=== PATIENT | male | born 1940 | race Caucasian/White ===

== ENCOUNTER 2025-11-12 14:28 | Inpatient (IN) ==
[2025-11-13] MEDS ORDERED: POLYETHYLENE (MIRALAX) 17 GM PACK PO PRN (01:07)
--- NOTE | 2025-11-13 01:14 | History & Physical Report ---
Date of Service November 13, 2025 Assessment & Plan (1) Closed right femoral fracture: Plan: 85-year-old male with past medical history significant for dementia, depression, BPH, hypertension, GERD as per records, do not have complete records was transferred from [facility] for right hip fracture. Patient presented to [facility] from memory care unit from [facility] with fall. As per records from [facility] patient supposed to walk with a walker but he was ambulating without walker outside the room and had a witnessed fall to the ground presumably onto his right hip. And he was having pain in the right hip region and imaging studies done showed right hip fracture. Patient currently resting comfortably. Seems somewhat restless. Knows his name. Denies any pain. Could not get any history from the patient currently. Could not reach [facility] at [place]. Could not reach his sister. Status post fall Right femoral fracture Patient has severe dementia Ambulates with walker as per records Could not reach his sister or skilled nursing Because of age and severe dementia patient should be at moderate risk for any procedure N.p.o. Gentle fluids IV Tylenol as needed Consult orthopedics Hypertension Continue losartan and metoprolol IV hydralazine as needed Dementia On rivastigmine Olanzapine nightly Monitor for delirium Depression On Lexapro BPH On Proscar GERD On omeprazole Dilated oesophagus on ct chest barium swallow if needed recommended DVT prophylaxis SCDs on left leg only Further anticoagulation as per Ortho Disposition Medical floor CODE STATUS full code for now Addendum; Abnormal cxr. Can get ct chest.Right axilla US recommended. Admission and Anticipated Discharge Date Admission Date: November 12, 2025 History of Present Illness Chief Complaint: Fall and right hip fracture Primary Care Provider: Aliyah Pierre DO 85-year-old male with past medical history significant for dementia, depression, BPH, hypertension, GERD as per records, do not have complete records was transferred from [facility] for right hip fracture. Patient presented to [facility] from memory care unit from [facility] with fall. As per records from [facility] patient supposed to walk with a walker but he was ambulating without walker outside the room and had a witnessed fall to the ground presumably onto his right hip. And he was having pain in the right hip region and imaging studies done showed right hip fracture. Patient currently resting comfortably. Seems somewhat restless. Knows his name. Denies any pain. Could not get any history from the patient currently. Could not reach diane at [place]. Could not reach his sister. Past medical history. As mentioned above Past surgical history. Unknown at this time Family history and social history unknown at this time Allergies Allergy/AdvReac Type Severity Reaction Status Date / Time duloxetine [From Cymbalta] Allergy Unknown Verified 11/13/25 00:02 oxycodone Allergy Unknown Unverified 11/13/25 00:02 tramadol Allergy Unknown Verified 11/13/25 00:02 Home Medications Medication Instructions Recorded Confirmed Type alfuzosin 10 mg tablet,extended 10 mg PO DAILY 11/13/25 11/13/25 History release 24 hr aspirin 81 mg tablet,delayed 81 mg PO DAILY 11/13/25 11/13/25 History release escitalopram oxalate 10 mg tablet 10 mg PO DAILY 11/13/25 11/13/25 History finasteride 5 mg tablet 5 mg PO DAILY 11/13/25 11/13/25 History losartan 100 mg tablet 100 mg PO DAILY 11/13/25 11/13/25 History metoprolol succinate 100 mg 100 mg PO DAILY 11/13/25 11/13/25 History tablet,extended release 24 hr olanzapine 2.5 mg tablet 2.5 mg PO HS 11/13/25 11/13/25 History omeprazole 20 mg capsule,delayed 20 mg PO DAILY 11/13/25 11/13/25 History release rivastigmine 13.3 mg/24 hour 13.3 mg topical DAILY 11/13/25 11/13/25 History transdermal patch Past Med/Surg History Problem List (Updated 11/13/25 @ 01:26 by Olivier Pulido MD) Closed right femoral fracture Social History Smoking Status: Unknown if ever smoked Hx Alcohol Use: No Hx Substance Use: No Preferred Language: Amharic Communication Ability: Effective Rfid Systems Architect Required: No Beliefs That Will Affect Care: None Current Living Situation: Detention Current Living Situation Comment: Diane ([place]). Other Information That Helps Us Care for You: No Feels Safe at Home: Yes Safety Concerns: Feels Safe At This Time Assistive Devices: Hospital Bed and Walker Review of Systems Review of Systems: Unobtainable due to cognitive status Physical Exam Physical Exam: General- Somewhat restless Head- atraumatic Neck- supple, no JVD Lungs- clear to auscultation no wheezing or crackles Heart- regular rhythm; no murmur, no gallop. Abdomen- normal bowel sounds, soft, nontender, no distension Extremities- no pretibial edema, right leg slightly shortened Neuro- alert, oriented x 1; not answering questions Results & Data Results & Data Vital Signs (Past 12 Hours) Vital Signs Temp Pulse Resp BP BP Pulse Ox O2 Del Method 11/12/25 22:31 195/99 H 11/12/25 22:29 37.0 C 75 18 224/107 H 93 Nasal Cannula 11/12/25 22:16 37 C 75 16 199/95 H 224/107 H 93 Nasal Cannula O2 Flow Rate 11/12/25 22:31 11/12/25 22:29 2 11/12/25 22:16 2 Diagnostic Findings WBC 8.5. Hemoglobin 12.9. Hematocrit 40.2. Platelets 117. PT 10.4. INR 1.0. PTT 25. Sodium 141. Potassium 4.1. Chloride 113. CO2 21. H20. ALT 23. Alkaline phos is 146. BUN 17. Creatinine 1.5. Calcium 8.3. Total bilirubin 0.3. Lipase 28. CT abdomen pelvis without contrast. An angulated fracture was noted in the right femoral neck. No acute abdominal abnormalities. CT cervical spine without contrast. No evidence of acute fracture. Moderate to severe spondylitic changes. CT head without contrast. No acute abnormalities. Chronic microvascular ischemic changes and senile cortical atrophy, no significant changes. CT lumbar spine without contrast. No evidence of acute fracture or dislocation. CT thorax without contrast. No acute traumatic abnormality. Esophagus is moderately dilated and fluid-filled with a small hiatal hernia and no finding likely due to dilated stomach or esophageal dysmotility. Further evaluation barium swallow is recommended if clinically warranted. CT thoracic spine without contrast. No acute findings. Hip x-ray. Impacted fracture of the right femoral neck with surrounding soft tissue swelling. ECG Additional Comments: ECG. Normal sinus rhythm with PACs with rate of 65. Right bundle branch block. QTc 486. Code Status & VTE Plan VTE Prophylaxis Plan VTE Prophylaxis will be ordered: Yes
[2025-11-13] MEDS: HYDROmorphone INJ 0.5 MG/0.5 ML SYR IV PRN (01:30)
[2025-11-13] MEDS: LACTATED RINGER'S 1,000 ML IV SCH (01:30)
--- NOTE | 2025-11-13 02:20 | XRay Report ---
EXAM: XR chest 1V portable CLINICAL HISTORY: pre op TECHNIQUE: An X-ray image of the chest is obtained in AP projection. COMPARISON: No prior studies are available for comparison. FINDINGS: Pulmonary Parenchyma: A small left middle lung zonal nodule seen Few right middle lung zonal small nodules Elevation of the right hemidiaphragm centrally ,possibly eventration Rest of lungs are clear bilaterally. No evidence of consolidation, collapse, or focal opacities. No pulmonary nodules are identified. No evidence of pleural effusion or pleural thickening on the left. There is blunting of the right costophrenic angle. Also, there is thickening of the rihgt pleura on the lateral along with right middle and lower zones, which is suspicious for collection/effusion and compression of the neighbouring lung. Heart and Mediastinum: Heart size and shape are normal. No mediastinal widening or masses. No hilar or mediastinal lymphadenopathy. Bony Thorax: Bony thorax appears intact without fractures or deformities. Soft Tissues: There is 55 x 40 mm soft tissue density in the right axilla. The left side is not included. A curvlinear radio-opaque shadow seen at the upper chest , possibly foreign body (necklace)Clinical correlation is recommended IMPRESSION: Thickening of the rigth pleura on the lateral along with right middle and lowerf zones; suspicious for collection/effusion. Clinical correlation and further evaluation with CT recommended. Blunting of the right costophrenic angle, which might be denoting mild effusion or adhesion. 55 x 40 mm soft tissue density in the right axilla, the left axilla is not included in the examination. It might be due to soft tissue superposition b?t other pathologies, like an enlarged lymph node or mass lesion, cannot be excluded. US correlation recommended. Bilateral tiny middle zone lung nodules. Clinical correlation and follow up recommended No acute cardiopulmonary abnormalities are identified. Electronically signed by Quang He 11-13-2025 02:19 AM
[2025-11-13 06:22] LABS: Hematocrit (blood only) 37.6 % (42.0-52.0); Hemoglobin 12.2 g/dL (14.0-18.0); Immature Granulocytes # (auto) 0.08 K/uL (0.01-0.20); Immature Granulocytes % (auto) 0.6 %; Mean Corpuscular Hemoglobin 28.9 pg (25.0-34.0); Mean Corpuscular Volume 89.1 fL (80.0-100.0); Platelet Count 110 K/uL (130-400); RDW Standard Deviation 52.4 fL (36.4-46.3); Red Blood Count 4.22 M/uL (4.70-6.10); White Blood Count 13.10 K/ul (4.8-10.8)
[2025-11-13 06:39] LABS: Anion Gap 6.0 (3-11); Blood Urea Nitrogen 34.0 mg/dl (6-23); Calcium 8.3 mg/dl (8.6-10.3); Carbon Dioxide 24.0 mmol/L (21-32); Chloride 114.0 mmol/L (98-107); Creatinine Clr Calc Pharmacy 36.3 ml/min; Glucose 144.0 mg/dl (70-99(Fasting)); Magnesium 1.9 mg/dl (1.7-2.4); Potassium 4.5 mmol/L (3.5-5.1); Sodium 144.0 mmol/L (136-145)
[2025-11-13 07:05] LABS: INR 1.1 (0.9-1.1); Partial Thromboplastin Time 27 Seconds (21-31); Prothrombin Time 11.4 Seconds (9.0-12.0)
--- NOTE | 2025-11-13 09:52 | Orthopedic Consultation ---
Date of Service November 13, 2025 Assessment & Plan (1) Fracture of femoral neck, right, closed: * Case/imaging reviewed and discussed with Dr Calderon * Recommend OR today for hip hemiarthroplasty * Weight bearing status: NWB preop * Maintain NPO * Daily treatment: Physical Therapy/ Occupational Therapy per protocol * Pain control * Disposition: TBD * Remainder care per primary team * Will continue to follow History of Present Illness Reason for Consultation: Right hip pain Requesting Physician: . Attending Physician: Jose Guardado MD .Patient is a 85y/o male with right hip pain. PMH including dementia, depression, BPH, hypertension, GERD as per records, do not have complete records was transferred from [facility]. Presents to hospital with right hip pain after a witnessed fall at his [facility]. Per report he supposed be using a walker but was not at the time. Workup at outside hospital including x-ray/CT right hip reportedly demonstrating right femoral neck fracture, however they are not available for review at time of my exam. Admitted to hospital medicine team. Orthopedics consulted for management recommendations. At time of exam patient lying in bed, no acute distress. Unable to provide much history, does not recall events surrounding the injury. Endorses moderate right hip/thigh pain that increases with attempted movement. Denies tingling or numbness of the right lower extremity.. Allergies Allergy/AdvReac Type Severity Reaction Status Date / Time duloxetine [From Cymbalta] Allergy Unknown Verified 11/13/25 00:02 oxycodone Allergy Unknown Unverified 11/13/25 00:02 tramadol Allergy Unknown Verified 11/13/25 00:02 Home Medications Medication Instructions Recorded Confirmed Type alfuzosin 10 mg tablet,extended 10 mg PO DAILY 11/13/25 11/13/25 History release 24 hr aspirin 81 mg tablet,delayed 81 mg PO DAILY 11/13/25 11/13/25 History release escitalopram oxalate 10 mg tablet 10 mg PO DAILY 11/13/25 11/13/25 History finasteride 5 mg tablet 5 mg PO DAILY 11/13/25 11/13/25 History losartan 100 mg tablet 100 mg PO DAILY 11/13/25 11/13/25 History metoprolol succinate 100 mg 100 mg PO DAILY 11/13/25 11/13/25 History tablet,extended release 24 hr olanzapine 2.5 mg tablet 2.5 mg PO HS 11/13/25 11/13/25 History omeprazole 20 mg capsule,delayed 20 mg PO DAILY 11/13/25 11/13/25 History release rivastigmine 13.3 mg/24 hour 13.3 mg topical DAILY 11/13/25 11/13/25 History transdermal patch Past Med/Surg History Problem List (Updated 11/13/25 @ 09:51 by Wong Romero PA-C) Fracture of femoral neck, right, closed Medical History (Updated 11/13/25 @ 09:51 by Wong Romero PA-C) Closed right femoral fracture Social History Smoking Status: Unknown if ever smoked Hx Alcohol Use: No Hx Substance Use: No Preferred Language: Sinhala Communication Ability: Effective Gui Developer Required: No Beliefs That Will Affect Care: None Current Living Situation: Intermediate Current Living Situation Comment: [place] ([place]). Other Information That Helps Us Care for You: No Feels Safe at Home: Yes Safety Concerns: Feels Safe At This Time Assistive Devices: Hospital Bed and Walker Review of Systems All systems reviewed & are unremarkable except as noted in HPI & below. Physical Exam . * General: Alert and oriented, no acute distress * Constitutional: well-developed, well-nourished. * Respiratory: Normal respiratory effort, no distress * Gastrointestinal: No tenderness to palpation, no rigidity or guarding. * Skin: No rash or lesion. * Neurologic: Grossly normal * Musculoskeletal: Right lower extremity shortened actually rotated, diffuse soft tissue swelling of the right thigh, otherwise no obvious deformity or overlying skin changes to the right lower extremity. TTP right hip region and proximal thigh. Otherwise no specific tenderness of the distal thigh, knee, lower leg. Pain with logroll, otherwise ROM hip not assessed. AROM foot/ankle intact. Sensation intact plantar/dorsal foot. Brisk capillary refill Results & Data Results & Data Laboratory Results . Diagnostic Findings . PG Care Time/CCT Total # of Minutes Spent Total Time Spent with Patient: Total time spent is greater than 50% in coordination of care (as documented) at patient's floor/unit and/or counseling patient: [place] [address] IN/OBS CONSULT LVL 5,80M Patient Type New Medical Decision Making High Complexity Diagnoses Fracture of femoral neck, right, closed S72.001A
[2025-11-13] MEDS: LOSARTAN POTASSIUM 50 MG TAB PO SCH (10:12)
[2025-11-13] MEDS: FINASTERIDE 5 MG TAB PO SCH (10:12)
[2025-11-13] MEDS: TAMSULOSIN HCL 0.4 MG CAP PO SCH (10:12)
[2025-11-13] MEDS: ASPIRIN 81 MG ECTAB PO SCH ×2 (10:13→21:05)
[2025-11-13] MEDS: METOPROLOL SUCC 50MG EXT REL TAB PO SCH (10:13)
[2025-11-13] MEDS: ESCITALOPRAM OXALATE 10 MG TAB PO SCH (10:13)
[2025-11-13] MEDS: ACETAMINOPHEN 1,000 MG/100 ML VIAL IV PRN (10:32)
--- NOTE | 2025-11-13 10:57 | History & Physical Bridge Note ---
Date of Service November 13, 2025 History & Physical Bridge Note I have examined the patient, reviewed the History & Physical and in the interval since the performance of the History & Physical I have noted the following changes of clinical significance: no changes noted
[2025-11-13] MEDS ORDERED: LIDOCAINE 2% 2 ML VIAL/AMP(20MG/ML) INFIL ONE (11:35)
[2025-11-13] MEDS ORDERED: ONDANSETRON INJ 2 MG/ML 2 ML VIAL ONE (11:35)
[2025-11-13] MEDS ORDERED: PROPOFOL IV EMULSION 10 MG/ML 20 ML VIAL IV ONE (11:35)
[2025-11-13] MEDS ORDERED: ROCURONIUM BROMIDE 10 MG/ML 5 ML VIAL IV ONE (11:35)
--- NOTE | 2025-11-13 12:19 | XRay Report ---
SINGLE VIEW PELVIS; SINGLE VIEW HIP CLINICAL HISTORY: Right hip fracture. FINDINGS: AP views of the pelvis are obtained with a crosstable lateral view of the right hip. No ida or studies are available for comparison at the time of dictation. The skeletal structures are osteope carrillo. There is a minimally offset right femoral neck fracture. Overlying soft tissue edema is observed . No additional acute fracture is seen involving the left hip or the bony pelvis. Mild to moderate ar thritic change and joint space narrowing is seen in the hips. There is degenerative sclerosis of the sacroiliac joints. Lumbosacral spondylosis is partially imaged. IMPRESSION: Right femoral neck fracture as above. Electronically signed by: Geraldo Mina M.D. 11/13/2025 12:18 PM
[2025-11-13] MEDS ORDERED: ATROPINE SULFATE 0.1 MG/ML 10ML SYR IV PRN (12:45)
[2025-11-13] MEDS ORDERED: ONDANSETRON INJ 2 MG/ML 2 ML VIAL IV PRN (12:45)
--- NOTE | 2025-11-13 12:45 | Anesthesiology Consultation ---
Date of Service November 13, 2025 Assessment & Plan Chart Review Chart Review: Acceptable Risk for Surgery and Patient NOT seen in Pre Admission Testing Consults Requested none History Surgery Operation Date: 11/13/25 11:35 Proposed Procedures p Right Hip Cemented Hemiarthroplasty - Joseph Calderon DO Height/Weight Height: 5 ft 7 in Weight: 77.4 kg Allergies Allergy/AdvReac Type Severity Reaction Status Date / Time duloxetine [From Cymbalta] Allergy Unknown Verified 11/13/25 00:02 oxycodone Allergy Unknown Unverified 11/13/25 00:02 tramadol Allergy Unknown Verified 11/13/25 00:02 Medications Home Medications Medication Instructions Recorded Confirmed Last Taken alfuzosin 10 mg tablet,extended 10 mg PO DAILY 11/13/25 11/13/25 Unknown release 24 hr aspirin 81 mg tablet,delayed 81 mg PO DAILY 11/13/25 11/13/25 Unknown release escitalopram oxalate 10 mg tablet 10 mg PO DAILY 11/13/25 11/13/25 Unknown finasteride 5 mg tablet 5 mg PO DAILY 11/13/25 11/13/25 Unknown losartan 100 mg tablet 100 mg PO DAILY 11/13/25 11/13/25 Unknown metoprolol succinate 100 mg 100 mg PO DAILY 11/13/25 11/13/25 Unknown tablet,extended release 24 hr olanzapine 2.5 mg tablet 2.5 mg PO HS 11/13/25 11/13/25 Unknown omeprazole 20 mg capsule,delayed 20 mg PO DAILY 11/13/25 11/13/25 Unknown release rivastigmine 13.3 mg/24 hour 13.3 mg topical DAILY 11/13/25 11/13/25 Unknown transdermal patch Active Medications Generic Name Dose Route Start Last Admin Trade Name Freq PRN Reason Stop Dose Admin Aspirin 81 mg 11/13/25 09:30 11/13/25 10:13 Aspirin 81 Mg Ectab PO 12/13/25 09:29 81 mg DAILY ARIANA Administration Escitalopram Oxalate 10 mg 11/13/25 09:30 11/13/25 10:13 Escitalopram Oxalate 10 Mg Tab PO 12/13/25 09:29 10 mg DAILY ARIANA Administration Finasteride 5 mg 11/13/25 09:30 11/13/25 10:12 Finasteride 5 Mg Tab PO 12/13/25 09:29 5 mg DAILY ARIANA Administration Hydralazine HCl 7.5 mg 11/13/25 01:07 11/13/25 08:35 Hydralazine Hcl 20 Mg/Ml Vial IV 12/13/25 01:06 7.5 mg Q6H PRN Administration Hypertension Hydromorphone HCl 0.25 mg 11/13/25 01:07 11/13/25 08:35 Hydromorphone Inj 0.5 Mg/0.5 Ml Syr IV 11/27/25 01:06 0.25 mg Q4H PRN Administration Mod-Sev Pain (Scale 4-10) Acetaminophen 1,000 mg in 100 mls @ 400 mls/hr 11/13/25 01:07 11/13/25 10:58 Ofirmev IV 11/16/25 01:06 Infused Q8H PRN Infusion Pain or Fever Lactated Ringer's 1,000 mls @ 80 mls/hr 11/13/25 01:07 11/13/25 12:25 Lr IV 11/16/25 01:06 Infused .[id number] ARIANA Infusion Losartan Potassium 100 mg 11/13/25 09:30 11/13/25 10:12 Losartan Potassium 50 Mg Tab PO 12/13/25 09:29 100 mg DAILY ARIANA Administration Metoprolol Succinate 100 mg 11/13/25 09:30 11/13/25 10:13 Metoprolol Succ 50mg Ext Rel Tab PO 12/13/25 09:29 100 mg DAILY ARIANA Administration Tamsulosin HCl 0.4 mg 11/13/25 09:30 11/13/25 10:12 Tamsulosin Hcl 0.4 Mg Cap PO 12/13/25 09:29 0.4 mg DAILY ARIANA Administration NPO Date Last Intake of Fluids: 11/13/25 Time Last Intake of Fluids: 09:00 Last Intake of Fluids Comment: sip with med Date Last Intake of Solids: 11/12/25 Time Last Intake of Solids: 22:16 Last Intake of Solids Comment: unknown Past Medical History Medical History (Updated 11/13/25 @ 09:51 by Wong Romero PA-C) Closed right femoral fracture Social History Smoking Status: Unknown if ever smoked Hx Alcohol Use: No Hx Substance Use: No substance use type: does not use Physical Exam Vital Signs Last Vital Signs Temp 36.8 C 11/13/25 12:13 Pulse 66 11/13/25 12:13 Resp 18 11/13/25 12:13 BP 186/87 H 11/13/25 12:13 Pulse Ox 97 11/13/25 12:13 O2 Del Method Nasal Cannula 11/13/25 12:13 O2 Flow Rate 2 11/13/25 12:13 Testing Laboratory Results 11/13/25 05:31 11/13/25 05:31 PT 11.4 Seconds (9.0-12.0) 11/13/25 05:31 INR 1.1 (0.9-1.1) 11/13/25 05:31 APTT 27 Seconds (21-31) 11/13/25 05:31 11/13/25 12:02 POC Glucose 114 H
[2025-11-13] MEDS: TRANEXAMIC ACID / 0.7% NACL 1,000 MG/100 ML BAG IV ONE (12:58)
[2025-11-13] MEDS: ROPIVACAINE 0.5% HCL/PF 246 MG, Ketorolac (*for OR use only*) 30 MG, EPINEPHrine 30MG/3... INFIL STA (13:00)
--- NOTE | 2025-11-13 13:14 | Hospitalist Progress Note ---
Date of Service November 13, 2025 Assessment & Plan (1) Closed right femoral fracture: Plan: 85-year-old male with past medical history significant for dementia, depression, BPH, hypertension, GERD as per records, do not have complete records was transferred from [facility] for right hip fracture. Patient presented to [facility] from memory care unit from [facility] with fall. As per records from [facility] patient supposed to walk with a walker but he was ambulating without walker outside the room and had a witnessed fall to the ground presumably onto his right hip. And he was having pain in the right hip region and imaging studies done showed right hip fracture. Fall Right femoral fracture Patient presented after mechanical fall. History of severe dementia and memory care unit Found to have right femoral neck fracture Plan for surgery as per orthopedic Pain control with Tylenol, Dilaudid IV fluids while n.p.o. Will need PT OT after surgery CXR shows 55 x 40 mm soft tissue density in the right axilla, the left axilla is not included in the examination. US ordered-can be obtained in non-emergent basis. Hypertension Continue losartan and metoprolol IV hydralazine as needed Dementia On rivastigmine Olanzapine nightly Monitor for delirium Depression On Lexapro-continue BPH On Proscar-continue GERD On omeprazole-continue DVT prophylaxis SCDs on left leg only Further anticoagulation as per Ortho Disposition Medical floor code status full Please note the above document was generated using voice recognition software. It may contain grammatical, syntax or spelling errors. Any formal questions or concerns about the content, text or information contained within the body of this dictation should be directly addressed to the provider for clarification Admission and Anticipated Discharge Date Admission Date: November 12, 2025 Subjective Patient seen and examined at bedside. He reports that he is in pain; getting Dilaudid/Tylenol. Blood pressure likely elevated secondary to pain. Review of Systems Review of Systems: All systems reviewed & are unremarkable except as noted in Subjective Physical Exam Physical Exam: General- Somewhat restless; appears to be in pain Head- atraumatic Neck- supple, no JVD Lungs- clear to auscultation no wheezing or crackles Heart- regular rhythm; no murmur, no gallop. Abdomen- normal bowel sounds, soft, nontender, no distension Extremities- no pretibial edema, right leg slightly shortened and external rotated Neuro- alert, oriented x 1; not answering questions Results & Data Results & Data Vital Signs (Past 12 Hours) Vital Signs Temp Pulse Resp BP Pulse Ox O2 Del Method O2 Flow Rate 11/13/25 12:13 36.8 C 66 18 186/87 H 97 Nasal Cannula 2 11/13/25 08:56 172/86 H 11/13/25 08:34 36.6 C 69 16 195/89 H 95 Nasal Cannula 2 11/13/25 07:26 Nasal Cannula 2 11/13/25 02:33 171/82 H
[2025-11-13] MEDS ORDERED: DEXAMETHASONE SOD INJ 4 MG/ML VIAL ONE (13:21)
[2025-11-13] MEDS ORDERED: HYDROmorphone INJ 2 MG/ML SYR/VIAL ONE (13:23)
[2025-11-13] MEDS ORDERED: DexMEDEtomidine HCL IV 100 MCG/ML VIAL IV ONE (13:23)
[2025-11-13] MEDS ORDERED: ePHEDrine sulfate 50 MG/5 ML SYR ONE (13:25)
[2025-11-13] MEDS ORDERED: PHENYLEPHRINE 100MCG/ML 5ML SYR ONE (13:43)
[2025-11-13] MEDS ORDERED: LABETALOL HCL IV 5 MG/ML 20ML IV ONE (14:17)
--- NOTE | 2025-11-13 14:26 | Electrocardiogram Report ---
Test Reason : Blood Pressure : */* mmHG Vent. Rate : 84 BPM Atrial Rate : 84 BPM P-R Int : 156 ms QRS Dur : 82 ms QT Int : 338 ms P-R-T Axes : 56 -3 -61 degrees QTcB Int : 399 ms Normal sinus rhythm Nonspecific ST abnormality Abnormal ECG No previous ECGs available Confirmed by Arnie Amos ([id number]) on 11/13/2025 2:26:08 PM Referred By: Hilton El Confirmed By: Arnie Amos
[2025-11-13] MEDS ORDERED: SUGAMMADEX SODIUM 200 MG/2 ML VIAL IV ONE (14:34)
--- NOTE | 2025-11-13 14:38 | Ultrasound Report ---
ULTRASOUND RIGHT AXILLA NONVASCULAR CLINICAL HISTORY: Abnormal chest x-ray. Possible mass. COMPARISON STUDY: Chest x-ray dated 11/13/2025. FINDINGS: Real-time grayscale and color flow sonography of the right axilla was performed to assess f or a mass lesion. No mass or fluid collection is identified. There is no lymphadenopathy. IMPRESSION: Normal sonographic examination of the right axilla. Electronically signed by: Geraldo Mina M.D. 11/13/2025 2:37 PM
--- NOTE | 2025-11-13 15:11 | Fluoroscopy Report ---
FL hip RT 1V CLINICAL HISTORY: ANTERIOR RIGHT HIPright hip arthroplasty COMPARISON STUDY: Pelvis right hip radiographs 11/13/2025 FLUOROSCOPY TIME: 9.3 seconds FLUOROSCOPY IMAGES: 1 EXPOSURE DOSE: 0.96 mGy FINDINGS: Satisfactory alignment of the right hip arthroplasty. No acute fracture or unexpected opaqu e foreign body identified on this exam. IMPRESSION: Fluoroscopic assistance as above. ACT 112: Negative or not required by law. Electronically signed by: Mook De Leon M.D. 11/13/2025 3:10 PM
--- NOTE | 2025-11-13 15:40 | Operative Report ---
PG Post Operative Report Pre & Post Diagnosis Operation Date: 11/13/25 11:35 Pre-Op Diagnosis: Right Femoral Neck Fracture Post-Op Diagnosis: Right Femoral Neck Fracture I identified the patient and participated in the time-out.: Yes Procedure Operation Date: 11/13/25 11:35 Actual Procedures p Right Hip Cemented Hemiarthroplasty(Right) - Joseph Calderon DO Surgeon Joseph Calderon DO Lodging House Keeper Terri Harrington PA-C Estimated Blood Loss 200 Findings Consistent with Post-Op Diagnosis Specimens Right femoral head Description of Procedure On November 13, 2025 Ed was brought down from his hospital room to the preoperative holding area. The operative extremity identified and signed. He was given a preoperative antibiotic and TXA. He was taken back to the operative room and placed under general anesthesia on the bed. He was then transferred to the operating table. The right hip was placed in a Purist leg positioner. The right hip was then prepped and draped sterile fashion. A timeout was done. The patient and the operative extremity was properly identified. An anterior approach was used. Dissection was taken down through the fascia. The circumflex vessels were identified and ligated. The rectus was retracted anteriorly and the tensor fascia muscle belly was retracted posteriorly. The capsule was identified. The capsule was then incised and tagged for later repair. The femoral head and neck were identified. There was a displaced fracture of the femoral neck. The femoral neck was then resected at the appro priate level. The femoral neck was removed and then the head was removed. The acetabulum was then exposed. Time was spent removing any loose labral fragments and the ligamentum. The femoral head measured to be a size 51. The proximal femur was then exposed. Sequential broaching up to a size 11 broach was done. A 28 mm head with a 0 neck was then snapped into a 51 mm shell. It was then attached to a standard femoral neck. The hip was then reduced. Fluoroscopic images showed anatomic alignment of the fracture. I was able to get good stability. The hip was then dislocated. All trial components were then removed. The final size 9 Deisy [employer] echo stem was then cemented in place with Palacos cement. Once cement had hardened, a 28 mm head with a 0 neck was then snapped into a 51 mm shell. The head and shell assembly was then impacted onto the femoral stem. The hip was then reduced. Final fluoroscopic images showed anatomic alignment. The surgical area was then irrigated. Hemostasis was obtained. The capsule was then closed with #1 Vicryl suture. The fascia was closed with 2-0 Vicryl. A deep 2-0 Vicryl layer was placed. Skin was closed with 3-0 Vicryl and a [place] Zipline. He was then placed in a Silverlon dressing. He was then extubated and transferred back to a hospital bed. He was taken to the postanesthesia care unit in stable condition. He tolerated the procedure well. Terri Harrington PA-C, was present for the entire procedure. He was critical for patient positioning, prepping, draping, retraction exposure, wound closure and application of sterile dressing. I attest to the content of the Intraoperative Record and any orders documented therein. Any exceptions are noted below.
[2025-11-13] MEDS: TRANEXAMIC ACID / 0.7% NACL 1000MG/100ML BAG IV ONE (16:29)
--- NOTE | 2025-11-13 16:35 | Anesthesiology Progress Note ---
Date of Service November 13, 2025 Anesthesia Post Procedure Vital Signs Vital Signs: Temp Pulse Pulse Resp BP BP Pulse Ox 11/13/25 15:55 72 20 134/69 93 11/13/25 15:40 36.3 C L 68 18 137/71 94 11/13/25 15:30 72 16 138/71 93 11/13/25 15:20 73 18 125/67 93 11/13/25 15:11 37 C 73 16 128/68 95 11/13/25 12:13 36.8 C 66 18 186/87 H 97 11/13/25 08:56 172/86 H 11/13/25 08:34 36.6 C 69 16 195/89 H 95 11/13/25 07:26 11/13/25 02:33 171/82 H 11/13/25 01:07 11/12/25 22:31 195/99 H 11/12/25 22:29 37.0 C 75 18 224/107 H 93 11/12/25 22:16 11/12/25 22:16 11/12/25 22:16 37 C 75 16 199/95 H 224/107 H 93 11/12/25 22:16 11/12/25 22:16 37 C 75 16 199/95 H 224/107 H 93 Pulse Ox O2 Del Method O2 Del Method O2 Flow Rate O2 Flow Rate 11/13/25 15:55 Nasal Cannula 3 11/13/25 15:40 Nasal Cannula 3 11/13/25 15:30 Oxymask 4 11/13/25 15:20 Oxymask 4 11/13/25 15:11 Oxymask 6 11/13/25 12:13 Nasal Cannula 2 11/13/25 08:56 11/13/25 08:34 Nasal Cannula 2 11/13/25 07:26 Nasal Cannula 2 11/13/25 02:33 11/13/25 01:07 93 Nasal Cannula 2 11/12/25 22:31 11/12/25 22:29 Nasal Cannula 2 11/12/25 22:16 93 Nasal Cannula 2 11/12/25 22:16 Nasal Cannula 2 11/12/25 22:16 Nasal Cannula 2 11/12/25 22:16 Nasal Cannula 2 11/12/25 22:16 Nasal Cannula 2 Pain Intensity Right Hip: Pain Intensity: 4 Transfer of Care Handoff Completed per policy Notes Mental Status: alert / awake / arousable Patient Amnestic to Procedure: Yes Nausea / Vomiting: adequately controlled Pain: adequately controlled Airway Patency, RR, SpO2: stable & adequate BP & HR: stable & adequate Hydration State: stable & adequate Anesthetic Complications: no major complications apparent
--- NOTE | 2025-11-13 16:38 | XRay Report ---
One view of the pelvis is submitted for review. Findings: No fracture is seen. There is a right hip bipolar hemiarthroplasty in expected position. There is no definite sign of infection or loosening. No other osseous abnormality is identified. There are no radiopaque foreign bodies. Impression: Right hip replacement Electronically signed by Alvarez Swenson 11-13-2025 4:38 PM
[2025-11-13] MEDS: OLANZAPINE 2.5 MG TAB PO SCH (21:05)
[2025-11-14] MEDS: LORazepam Inj 0.25 MG in SYRINGE 0.125 ML IM ONE (05:36)
[2025-11-14 07:55] LABS: Hematocrit (blood only) 34.5 % (42.0-52.0); Hemoglobin 11.1 g/dL (14.0-18.0); Immature Granulocytes # (auto) 0.13 K/uL (0.01-0.20); Immature Granulocytes % (auto) 0.8 %; Mean Corpuscular Hemoglobin 28.8 pg (25.0-34.0); Mean Corpuscular Volume 89.6 fL (80.0-100.0); Platelet Count 105 K/uL (130-400); RDW Standard Deviation 54.4 fL (36.4-46.3); Red Blood Count 3.85 M/uL (4.70-6.10); White Blood Count 16.44 K/ul (4.8-10.8)
[2025-11-14 08:08] LABS: Anion Gap 11.0 (3-11); Blood Urea Nitrogen 43.0 mg/dl (6-23); Calcium 8.1 mg/dl (8.6-10.3); Carbon Dioxide 21.0 mmol/L (21-32); Chloride 113.0 mmol/L (98-107); Creatinine Clr Calc Pharmacy 30.4 ml/min; Glucose 123.0 mg/dl (70-99(Fasting)); Potassium 3.9 mmol/L (3.5-5.1); Sodium 145.0 mmol/L (136-145)
--- NOTE | 2025-11-14 08:41 | Orthopedic Progress Note ---
Date of Service November 14, 2025 Assessment & Plan (1) Status post hemiarthroplasty of right hip: (2) Fracture of femoral neck, right, closed: * Case/imaging reviewed and discussed with Dr Calderon * Right hip hemiarthroplasty 11/13/25 * Weight bearing status: WBAT * Daily treatment: Physical Therapy/ Occupational Therapy per protocol * Pain control * Disposition: TBD * Remainder care per primary team * Will continue to follow Subjective .Active Problems: S/p right hip hemiarthroplasty POD 1 85 y/o male s/p right hip hemiarthroplasty with Dr. Calderon. Doing well overall, pain managed and improved function. Denies fever/chills, chest pain/SOB, nausea/vomiting. Otherwise no complaints. Review of Systems All systems reviewed & are unremarkable except as noted in HPI & below. Physical Exam . * General: Alert and oriented, no acute distress * Constitutional: well-developed, well-nourished. * Respiratory: Normal respiratory effort, no distress * Gastrointestinal: No tenderness to palpation, no rigidity or guarding. * Skin: No rash or lesion. * Neurologic: Grossly normal * Musculoskeletal: Right hip surgical dressing clean, dry and in place, not removed for exam. Otherwise no obvious deformity or overlying skin changes. Diffuse TTP proximal thigh and hip region. Otherwise no specific tenderness of distal thigh, lower leg, foot/ankle. AROM hip flexion intact. AROM foot/ankle intact. Sensation intact plantar/dorsal foot. Brisk capillary refill. Results & Data Results & Data Laboratory Results . Laboratory Results - last 24 hr 11/13/25 11/13/25 11/14/25 12:02 15:17 07:11 WBC 16.44 H RBC 3.85 L Hgb 11.1 L Hct 34.5 L MCV 89.6 MCH 28.8 MCHC 32.2 RDW Std Deviation 54.4 H RDW Coeff of Barry 16.7 H Plt Count 105 L MPV 11.3 Immature Gran % (Auto) 0.8 Neut % (Auto) 85.3 Lymph % (Auto) 3.3 [place] % (Auto) 10.5 Eos % (Auto) 0.0 Baso % (Auto) 0.1 Neut # (Auto) 14.02 H Lymph # (Auto) 0.54 L [place] # (Auto) 1.73 H Eos # (Auto) 0.00 Baso # (Auto) 0.02 Immature Gran # (Auto) 0.13 Sodium 145 Potassium 3.9 Chloride 113 H Carbon Dioxide 21 Anion Gap 11 BUN 43 H Creatinine 1.60 H Est Cr Clr Drug Dosing 30.4 eGFR 41.44 BUN/Creatinine Ratio 26.9 H Glucose 123 H POC Glucose 114 H 156 H Calcium 8.1 L 25-OH Vitamin D Total 25.2 L Diagnostic Findings . Hip X-Ray 11/13/25 00:00 FL hip RT 1V CLINICAL HISTORY: ANTERIOR RIGHT HIPright hip arthroplasty COMPARISON STUDY: Pelvis right hip radiographs 11/13/2025 FLUOROSCOPY TIME: 9.3 seconds FLUOROSCOPY IMAGES: 1 EXPOSURE DOSE: 0.96 mGy FINDINGS: Satisfactory alignment of the right hip arthroplasty. No acute fracture or unexpected opaque foreign body identified on this exam. IMPRESSION: Fluoroscopic assistance as above. ACT 112: Negative or not required by law. Electronically signed by: Mook De Leon M.D. 11/13/2025 3:10 PM Chest X-Ray 11/13/25 01:07 EXAM: XR chest 1V portable CLINICAL HISTORY: pre op TECHNIQUE: An X-ray image of the chest is obtained in AP projection. COMPARISON: No prior studies are available for comparison. FINDINGS: Pulmonary Parenchyma: A small left middle lung zonal nodule seen Few right middle lung zonal small nodules Elevation of the right hemidiaphragm centrally ,possibly eventration Rest of lungs are clear bilaterally. No evidence of consolidation, collapse, or focal opacities. No pulmonary nodules are identified. No evidence of pleural effusion or pleural thickening on the left. There is blunting of the right costophrenic angle. Also, there is thickening of the rihgt pleura on the lateral along with right middle and lower zones, which is suspicious for collection/effusion and compression of the neighbouring lung. Heart and Mediastinum: Heart size and shape are normal. No mediastinal widening or masses. No hilar or mediastinal lymphadenopathy. Bony Thorax: Bony thorax appears intact without fractures or deformities. Soft Tissues: There is 55 x 40 mm soft tissue density in the right axilla. The left side is not included. A curvlinear radio-opaque shadow seen at the upper chest , possibly foreign body (necklace)Clinical correlation is recommended IMPRESSION: Thickening of the rigth pleura on the lateral along with right middle and lowerf zones; suspicious for collection/effusion. Clinical correlation and further evaluation with CT recommended. Blunting of the right costophrenic angle, which might be denoting mild effusion or adhesion. 55 x 40 mm soft tissue density in the right axilla, the left axilla is not included in the examination. It might be due to soft tissue superposition b?t other pathologies, like an enlarged lymph node or mass lesion, cannot be excluded. US correlation recommended. Bilateral tiny middle zone lung nodules. Clinical correlation and follow up recommended No acute cardiopulmonary abnormalities are identified. Electronically signed by Quang He 11-13-2025 02:19 AM Axilla US 11/13/25 09:21 ULTRASOUND RIGHT AXILLA NONVASCULAR CLINICAL HISTORY: Abnormal chest x-ray. Possible mass. COMPARISON STUDY: Chest x-ray dated 11/13/2025. FINDINGS: Real-time grayscale and color flow sonography of the right axilla was performed to assess for a mass lesion. No mass or fluid collection is identified. There is no lymphadenopathy. IMPRESSION: Normal sonographic examination of the right axilla. Electronically signed by: Geraldo Mina M.D. 11/13/2025 2:37 PM Pelvis X-Ray 11/13/25 15:03 One view of the pelvis is submitted for review. Findings: No fracture is seen. There is a right hip bipolar hemiarthroplasty in expected position. There is no definite sign of infection or loosening. No other osseous abnormality is identified. There are no radiopaque foreign bodies. Impression: Right hip replacement Electronically signed by Alvarez Swenson 11-13-2025 4:38 PM PG Care Time/CCT Total # of Minutes Spent Total Time Spent with Patient: Total time spent is greater than 50% in coordination of care (as documented) at patient's floor/unit and/or counseling patient: Coding Level of Care Code 02329 Post Operative Follow-Up Diagnoses Status post hemiarthroplasty of right hip Z96.641 Fracture of femoral neck, right, closed S72.001A
--- NOTE | 2025-11-14 09:22 | CT Scan Report ---
CT OF THE CHEST WITHOUT IV CONTRAST CLINICAL HISTORY: Abnormal chest radiograph. Evaluate for pleural effusion. COMPARISON STUDY: Chest CT November 12, 2025. Chest radiograph November 13, 2025. CT DOSE: 430.66 mGy.cm TECHNIQUE: Axial images of the chest were obtained without IV contrast. Images were reviewed in the axial, sagittal, and coronal planes. IV contrast was not administered for this examination. Automat ed exposure control was utilized for the study. A dose lowering technique was utilized adhering to t he principles of ALARA. FINDINGS: No enlarged axillary, mediastinal or hilar lymph nodes are present. There is moderate card iomegaly and extensive coronary artery calcification. There is no pericardial effusion. There are tra ce bilateral pleural effusions. Subpleural opacities represent atelectasis. There is no consolidation to suggest pneumonia. There is no pneumothorax. No suspicious pulmonary nodules are present. There a re calcified bilateral hilar lymph nodes. IMPRESSION: 1. Trace bilateral pleural effusions. Associated subpleural opacities consistent with atelectasis. 2. No consolidation to suggest pneumonia. 3. Moderate cardiomegaly. Extensive coronary artery calcification. ACT 112: Negative or not required by law. Electronically signed by: Rich Jones M.D. 11/14/2025 9:21 AM
[2025-11-14] MEDS: CHOLECALCIFEROL 25 MCG (1000 UNITS) TAB PO SCH (09:35)
--- NOTE | 2025-11-14 16:23 | Hospitalist Progress Note ---
Date of Service November 14, 2025 Assessment & Plan (1) Closed right femoral fracture: Plan: 85-year-old male with past medical history significant for dementia, depression, BPH, hypertension, GERD as per records, do not have complete records was transferred from [facility] for right hip fracture. Patient presented to [facility] from memory care unit from [facility] with fall. As per records from [facility] patient supposed to walk with a walker but he was ambulating without walker outside the room and had a witnessed fall to the ground presumably onto his right hip. And he was having pain in the right hip region and imaging studies done showed right hip fracture. Fall Right femoral fracture Patient presented after mechanical fall. History of severe dementia and memory care unit Found to have right femoral neck fracture s/p Right Hip Cemented Hemiarthroplasty(Right) 11/13 Pain control with Tylenol, Dilaudid PT/OT, will need rehab. Delirium precaution. Patient had headaches of delirium. Abn CXR: CXR shows 55 x 40 mm soft tissue density in the right axilla, the left axilla is not included in the examination. US ordered-can be obtained in non-emergent basis. Ultrasound right axilla: Normal sonographic examination of right axilla. CT chest: No abnormality detected in right axilla. Hypertension Continue losartan and metoprolol IV hydralazine as needed Dementia On rivastigmine Olanzapine nightly Monitor for delirium Depression On Lexapro-continue BPH On Proscar-continue GERD On omeprazole-continue DVT prophylaxis SCDs on left leg only, Aspirin twice daily per Ortho. Disposition: Medical floor. Will need rehab. code status full Please note the above document was generated using voice recognition software. It may contain grammatical, syntax or spelling errors. Any formal questions or concerns about the content, text or information contained within the body of this dictation should be directly addressed to the provider for clarification Admission and Anticipated Discharge Date Admission Date: November 12, 2025 Subjective Patient seen and examined at bedside. He reports that he is in pain at operative site; getting Dilaudid/Tylenol. monitor. Blood pressure likely elevated secondary to pain. ros not able in detail d/t cognition status. Physical Exam Physical Exam: General- Somewhat restless; appears to be in pain Head- atraumatic Neck- supple, no JVD Lungs- clear to auscultation no wheezing or crackles Heart- regular rhythm; no murmur, no gallop. Abdomen- normal bowel sounds, soft, nontender, no distension Extremities- no pretibial edema, right leg slightly shortened and external rotated Neuro- alert, oriented x 1; not answering questions Results & Data Results & Data Vital Signs (Past 12 Hours) Vital Signs Temp Pulse Resp BP Pulse Ox Pulse Ox O2 Del Method 11/14/25 15:18 37.2 C 83 18 155/82 H 91 Nasal Cannula 11/14/25 11:14 93 11/14/25 11:14 37.0 C 72 18 165/77 H 94 Room Air 11/14/25 10:13 98 11/14/25 07:05 37.6 C H 84 16 149/79 H 92 Room Air O2 Flow Rate O2 Flow Rate 11/14/25 15:18 3 11/14/25 11:14 11/14/25 11:14 11/14/25 10:13 2 11/14/25 07:05
[2025-11-15 07:37] LABS: Hematocrit (blood only) 27.3 % (42.0-52.0); Hemoglobin 9.2 g/dL (14.0-18.0); Mean Corpuscular Hemoglobin 30.0 pg (25.0-34.0); Mean Corpuscular Volume 88.9 fL (80.0-100.0); Platelet Count 84 K/uL (130-400); RDW Standard Deviation 53.9 fL (36.4-46.3); Red Blood Count 3.07 M/uL (4.70-6.10); White Blood Count 10.76 K/ul (4.8-10.8)
[2025-11-15 08:10] LABS: Anion Gap 6.0 (3-11); Blood Urea Nitrogen 42.0 mg/dl (6-23); Calcium 7.7 mg/dl (8.6-10.3); Carbon Dioxide 25.0 mmol/L (21-32); Chloride 112.0 mmol/L (98-107); Creatinine Clr Calc Pharmacy 32.4 ml/min; Glucose 89.0 mg/dl (70-99(Fasting)); Magnesium 2.1 mg/dl (1.7-2.4); Potassium 4.0 mmol/L (3.5-5.1); Sodium 143.0 mmol/L (136-145)
--- NOTE | 2025-11-15 08:22 | Orthopedic Progress Note ---
Date of Service November 15, 2025 Assessment & Plan (1) Status post hemiarthroplasty of right hip: (2) Fracture of femoral neck, right, closed: * Continue Current Treatment * S/p right hip hemiarthroplasty * Weight bearing status: WBAT, no hip precautions * Daily treatment: Physical Therapy/ Occupational Therapy per protocol * Pain control * Continue to monitor for ABLA * DVT prophylaxis, ok to resume from ortho standpoint * Disposition: TBD * Office/hospital f/u 2 weeks for progress check and staple/suture removal * Remainder care per primary team Subjective Active Problems: S/p right hip hemiarthroplasty POD 2 85 y/o male s/p right hip hemiarthroplasty with Dr. Calderon. Doing well overall, pain managed and improved function. Denies fever/chills, chest pain/SOB, nausea/vomiting. Otherwise no complaints. Review of Systems All systems reviewed & are unremarkable except as noted in HPI & below. Physical Exam * Musculoskeletal: Right hip surgical dressing clean, dry and in place, not removed for exam. Otherwise no obvious deformity or overlying skin changes. Diffuse TTP proximal thigh and hip region. Otherwise no specific tenderness of distal thigh, lower leg, foot/ankle. AROM hip flexion intact. AROM foot/ankle intact. Sensation intact plantar/dorsal foot. Brisk capillary refill. Results & Data Results & Data Laboratory Results . Diagnostic Findings . PG Care Time/CCT Total # of Minutes Spent Total Time Spent with Patient: Total time spent is greater than 50% in coordination of care (as documented) at patient's floor/unit and/or counseling patient: Coding Level of Care Code 56773 Post Operative Follow-Up Diagnoses Status post hemiarthroplasty of right hip Z96.641 Fracture of femoral neck, right, closed S72.001A
--- NOTE | 2025-11-15 16:16 | Hospitalist Progress Note ---
Date of Service November 15, 2025 Assessment & Plan (1) Closed right femoral fracture: Plan: 85-year-old male with past medical history significant for dementia, depression, BPH, hypertension, GERD as per records, do not have complete records was transferred from [facility] for right hip fracture. Patient presented to [facility] from memory care unit from [facility] with fall. As per records from [facility] patient supposed to walk with a walker but he was ambulating without walker outside the room and had a witnessed fall to the ground presumably onto his right hip. And he was having pain in the right hip region and imaging studies done showed right hip fracture. Fall Right femoral fracture Patient presented after mechanical fall. History of severe dementia and memory care unit Found to have right femoral neck fracture s/p Right Hip Cemented Hemiarthroplasty(Right) 11/13 Pain control with Tylenol, Dilaudid PT/OT, will need rehab. Delirium precaution. Patient high risk for delirium. prn im zyprexa Acute kidney injury: Cr up to 1.6, c/w ivf, cr downtrending. Abn CXR: CXR shows 55 x 40 mm soft tissue density in the right axilla, the left axilla is not included in the examination. US ordered-can be obtained in non-emergent basis. Ultrasound right axilla: Normal sonographic examination of right axilla. CT chest: No abnormality detected in right axilla. Hypertension Continue losartan and metoprolol IV hydralazine as needed Dementia On rivastigmine Olanzapine nightly Monitor for delirium Depression On Lexapro-continue BPH On Proscar-continue GERD On omeprazole-continue DVT prophylaxis SCDs on left leg only, Aspirin twice daily per Ortho. Disposition: Medical floor. Will need rehab. code status full Please note the above document was generated using voice recognition software. It may contain grammatical, syntax or spelling errors. Any formal questions or concerns about the content, text or information contained within the body of this dictation should be directly addressed to the provider for clarification Admission and Anticipated Discharge Date Admission Date: November 12, 2025 Subjective Patient seen and examined at bedside. He reports that he is in pain at operative site; getting Dilaudid/Tylenol. monitor. Blood pressure likely elevated secondary to pain. ros not able in detail d/t cognition status. Physical Exam Physical Exam: General- Somewhat restless; appears to be in pain Head- atraumatic Neck- supple, no JVD Lungs- clear to auscultation no wheezing or crackles Heart- regular rhythm; no murmur, no gallop. Abdomen- normal bowel sounds, soft, nontender, no distension Extremities- no pretibial edema, right leg slightly shortened and external rotated Neuro- alert, oriented x 1; not answering questions Results & Data Results & Data Vital Signs (Past 12 Hours) Vital Signs Temp Pulse Pulse Resp BP BP Pulse Ox 11/15/25 15:20 36.4 C L 74 18 148/70 H 94 11/15/25 07:53 37 C 77 19 152/75 H 94 11/15/25 07:30 O2 Del Method O2 Flow Rate 11/15/25 15:20 Nasal Cannula 4 11/15/25 07:53 Room Air 11/15/25 07:30 Nasal Cannula 2
[2025-11-15] MEDS: RIVASTIGMINE TARTRATE 1.5 MG CAP PO SCH (17:28)
[2025-11-15] MEDS: POLYETHYLENE (MIRALAX) 17 GM PACK PO SCH (17:35)
[2025-11-16 06:40] LABS: Hematocrit (blood only) 27.6 % (42.0-52.0); Hemoglobin 9.2 g/dL (14.0-18.0); Mean Corpuscular Hemoglobin 29.3 pg (25.0-34.0); Mean Corpuscular Volume 87.9 fL (80.0-100.0); Platelet Count 96 K/uL (130-400); RDW Standard Deviation 52.6 fL (36.4-46.3); Red Blood Count 3.14 M/uL (4.70-6.10); White Blood Count 9.60 K/ul (4.8-10.8)
[2025-11-16 07:09] LABS: Anion Gap 8.0 (3-11); Blood Urea Nitrogen 32.0 mg/dl (6-23); Calcium 7.9 mg/dl (8.6-10.3); Carbon Dioxide 22.0 mmol/L (21-32); Chloride 111.0 mmol/L (98-107); Creatinine Clr Calc Pharmacy 40.2 ml/min; Glucose 100.0 mg/dl (70-99(Fasting)); Potassium 3.9 mmol/L (3.5-5.1); Sodium 141.0 mmol/L (136-145)
--- NOTE | 2025-11-16 12:18 | Hospitalist Progress Note ---
Date of Service November 16, 2025 Assessment & Plan (1) Closed right femoral fracture: Plan: 85-year-old male with past medical history significant for dementia, depression, BPH, hypertension, GERD as per records, do not have complete records was transferred from [facility] for right hip fracture. Patient presented to [facility] from memory care unit from [facility] with fall. As per records from [facility] patient supposed to walk with a walker but he was ambulating without walker outside the room and had a witnessed fall to the ground presumably onto his right hip. And he was having pain in the right hip region and imaging studies done showed right hip fracture. Fall Right femoral fracture Patient presented after mechanical fall. History of severe dementia and memory care unit Found to have right femoral neck fracture s/p Right Hip Cemented Hemiarthroplasty(Right) 11/13 Pain control with Tylenol, Dilaudid PT/OT, will need rehab. Delirium precaution. Patient high risk for delirium. prn im zyprexa Acute kidney injury: Cr up to 1.6, s/p ivf, BRISEIDA resolved. dc ivf. Abn CXR: CXR shows 55 x 40 mm soft tissue density in the right axilla, the left axilla is not included in the examination. US ordered-can be obtained in non-emergent basis. Ultrasound right axilla: Normal sonographic examination of right axilla. CT chest: No abnormality detected in right axilla. Hypertension Continue losartan and metoprolol IV hydralazine as needed Dementia On rivastigmine Olanzapine nightly Monitor for delirium Depression On Lexapro-continue BPH On Proscar-continue GERD On omeprazole-continue DVT prophylaxis SCDs on left leg only, Aspirin twice daily per Ortho. Disposition: Medical floor. stable for rehab dc. code status full Please note the above document was generated using voice recognition software. It may contain grammatical, syntax or spelling errors. Any formal questions or concerns about the content, text or information contained within the body of this dictation should be directly addressed to the provider for clarification Admission and Anticipated Discharge Date Admission Date: November 12, 2025 Subjective Patient seen and examined at bedside. Per RN, pt removing medical equipment, pt on soft Upper Limb restraints. ros not able in detail d/t cognition status. Physical Exam Physical Exam: General- NAD, on soft limb restraints. Head- atraumatic Neck- supple, no JVD Lungs- clear to auscultation no wheezing or crackles Heart- regular rhythm; no murmur, no gallop. Abdomen- normal bowel sounds, soft, nontender, no distension Extremities- no pretibial edema, right hip w/ clean dressing wo soakage. Neuro- alert, oriented x 1; not answering questions Results & Data Results & Data Vital Signs (Past 12 Hours) Vital Signs Temp Pulse Resp BP Pulse Ox O2 Del Method O2 Flow Rate 11/16/25 07:38 36.3 C L 78 78 H 191/90 H 91 Room Air 11/16/25 01:41 Nasal Cannula 3
--- NOTE | 2025-11-17 10:11 | Urology Consultation ---
Date of Consultation November 17, 2025 Assessment & Plan (1) Dislodged Moore catheter: Plan 85-year-old male s/p Right Hip Cemented Hemiarthroplasty with Dr. Calderon on 11/13. Patient traumatically removed Moore catheter this morning-possible retained parts per RN Would recommend bladder ultrasound to see if there is retained parts seen PVR at bedside currently showing he is emptying Recommend continuing PVRs, if not emptying may need replacement of Moore catheter/cystoscopy in the OR for removal of retained parts Other medical management and care per primary team We can arrange outpatient with urology office next week for cystoscopy for further evaluation Urology will sign off, please recontact our office for any questions or concerns Case reviewed with Dr. Whitfield History of Present Illness Attending Physician: Santo West MD History of Present Illness 85-year-old male with past medical history significant for dementia, depression, BPH, hypertension, GERD as per records, do not have complete records was transferred from [facility] for right hip fracture. Per hospitalist: Patient presented to [facility] from memory care unit from [facility] with fall. As per records from [facility] patient supposed to walk with a walker but he was ambulating without walker outside the room and had a witnessed fall to the ground presumably onto his right hip. And he was having pain in the right hip region and imaging studies done showed right hip fracture. He underwent Right Hip Cemented Hemiarthroplasty with Dr. Calderon on 11/13. Urology was consulted due to patient pulling out Moore catheter with possible retained parts. Labs reviewed: WBCs 9.60 Creatinine 1.21 Hemoglobin 9.2 Patient seen and examined at bedside. Patient resting comfortably in bed. Not alert and oriented. He did deny abdominal pain, fevers, chills, nausea, vomiting. He is unsure if he has ever had a catheter before. PVR completed at bedside, 137 Allergies Allergy/AdvReac Type Severity Reaction Status Date / Time duloxetine [From Cymbalta] Allergy Unknown Verified 11/13/25 00:02 oxycodone Allergy Unknown Unverified 11/13/25 00:02 tramadol Allergy Unknown Verified 11/13/25 00:02 Home Medications Medication Instructions Recorded Confirmed Type alfuzosin 10 mg tablet,extended 10 mg PO DAILY 11/13/25 11/13/25 History release 24 hr aspirin 81 mg tablet,delayed 81 mg PO DAILY 11/13/25 11/13/25 History release escitalopram oxalate 10 mg tablet 10 mg PO DAILY 11/13/25 11/13/25 History finasteride 5 mg tablet 5 mg PO DAILY 11/13/25 11/13/25 History losartan 100 mg tablet 100 mg PO DAILY 11/13/25 11/13/25 History metoprolol succinate 100 mg 100 mg PO DAILY 11/13/25 11/13/25 History tablet,extended release 24 hr olanzapine 2.5 mg tablet 2.5 mg PO HS 11/13/25 11/13/25 History omeprazole 20 mg capsule,delayed 20 mg PO DAILY 11/13/25 11/13/25 History release rivastigmine 13.3 mg/24 hour 13.3 mg topical DAILY 11/13/25 11/13/25 History transdermal patch Patient History Medical History (Updated 11/17/25 @ 10:22 by LILY Yeung) Closed right femoral fracture Social History Smoking Status: Unknown if ever smoked Hx Alcohol Use: No Hx Substance Use: No Preferred Language: Turkish Communication Ability: Impaired Farrowing Manager Required: No Beliefs That Will Affect Care: None Current Living Situation: Care Home Current Living Situation Comment: [facility] ([facility]). Other Information That Helps Us Care for You: No Feels Safe at Home: Yes Safety Concerns: Feels Safe At This Time Assistive Devices: Walker Review of Systems Constitutional: as per Subjective / HPI Genitourinary: + as per Subjective / HPI Physical Exam Constitutional: no acute distress Chronically ill-appearing Respiratory: normal respiratory effort and able to speak in complete sentences Musculoskeletal: Extremities: + limited ROM of extremities Psychiatric: Orientation: + not alert and + not oriented x 3 Genitourinary: Scant blood around penile temp Results & Data Vital Signs (Past 12 Hours) Vital Signs Temp Pulse Resp BP BP Pulse Ox O2 Del Method 11/17/25 07:33 37.6 C H 77 20 186/83 H 91 Room Air 11/17/25 00:04 36.6 C 75 17 189/92 H Room Air 11/16/25 22:54 36.8 C 73 20 173/80 H 94 Room Air 11/16/25 22:38 Room Air O2 Flow Rate 11/17/25 07:33 11/17/25 00:04 11/16/25 22:54 11/16/25 22:38 3 PG Care Time/CCT Total # of Minutes Spent Total Time Spent with Patient: Total time spent is greater than 50% in coordination of care (as documented) at patient's floor/unit and/or counseling patient: Coding Level of Care Code 58898 INT INP/OBS CARE 2/55MIN Diagnoses Dislodged Moore catheter T83.021A
[2025-11-17] MEDS: cefTRIAXone SODIUM 2,000 MG/50 ML BAG IV SCH (15:08)
--- NOTE | 2025-11-17 16:20 | Hospitalist Progress Note ---
Date of Service November 17, 2025 Assessment & Plan (1) Closed right femoral fracture: Plan: 85-year-old male with past medical history significant for dementia, depression, BPH, hypertension, GERD as per records, do not have complete records was transferred from [facility] for right hip fracture. Patient presented to [facility] from memory care unit from [facility] with fall. As per records from [facility] patient supposed to walk with a walker but he was ambulating without walker outside the room and had a witnessed fall to the ground presumably onto his right hip. And he was having pain in the right hip region and imaging studies done showed right hip fracture. Fall Right femoral fracture Patient presented after mechanical fall. History of severe dementia and memory care unit Found to have right femoral neck fracture s/p Right Hip Cemented Hemiarthroplasty(Right) 11/13 Pain control with Tylenol, Dilaudid PT/OT, will need rehab. Delirium precaution. Patient high risk for delirium. prn im zyprexa Acute kidney injury: Cr up to 1.6, s/p ivf, BRISEIDA resolved. dc ivf. Retained Moore catheter/possible UTI: Overnight 11/16 - 11/17, patient pulled out his Moore catheter, tip of the Moore catheter remained inside the bladder. Patient later on peed in the urinal and the remaining part of the catheter fell out. Patient now developing low-grade fever, will start him on Rocephin, send urine analysis. Abn CXR: CXR shows 55 x 40 mm soft tissue density in the right axilla, the left axilla is not included in the examination. US ordered-can be obtained in non-emergent basis. Ultrasound right axilla: Normal sonographic examination of right axilla. CT chest: No abnormality detected in right axilla. Hypertension Continue losartan and metoprolol IV hydralazine as needed Dementia On rivastigmine Olanzapine nightly Monitor for delirium Depression On Lexapro-continue BPH On Proscar-continue GERD On omeprazole-continue DVT prophylaxis SCDs on left leg only, Aspirin twice daily per Ortho. Disposition: Medical floor. stable for rehab dc. code status full Please note the above document was generated using voice recognition software. It may contain grammatical, syntax or spelling errors. Any formal questions or concerns about the content, text or information contained within the body of this dictation should be directly addressed to the provider for clarification Admission and Anticipated Discharge Date Admission Date: November 12, 2025 Subjective Patient seen and examined at bedside. Per RN, pt removing medical equipment, One-to-one ordered. Per RN, patient removed Moore catheter overnight and part of it was broken and remained within the body. ros not able in detail d/t cognition status. Later in the day, patient peed in the urinal and the other half of the catheter fell out. Patient developing low-grade fever likely UTI. Will start on antibiotic. Physical Exam Physical Exam: General- NAD, on soft limb restraints. Head- atraumatic Neck- supple, no JVD Lungs- clear to auscultation no wheezing or crackles Heart- regular rhythm; no murmur, no gallop. Abdomen- normal bowel sounds, soft, nontender, no distension Extremities- no pretibial edema, right hip w/ clean dressing wo soakage. Neuro- alert, oriented x 1; not answering questions Results & Data Results & Data Vital Signs (Past 12 Hours) Vital Signs Temp Pulse Resp BP Pulse Ox O2 Del Method O2 Flow Rate 11/17/25 15:05 95 Nasal Cannula 2 11/17/25 14:46 37.9 C H 72 16 171/97 H 90 Room Air 11/17/25 07:33 37.6 C H 77 20 186/83 H 91 Room Air 11/17/25 07:00 Room Air
[2025-11-18 06:51] LABS: Hematocrit (blood only) 28.7 % (42.0-52.0); Hemoglobin 9.5 g/dL (14.0-18.0); Mean Corpuscular Hemoglobin 29.9 pg (25.0-34.0); Mean Corpuscular Volume 90.3 fL (80.0-100.0); Platelet Count 136 K/uL (130-400); RDW Standard Deviation 54.5 fL (36.4-46.3); Red Blood Count 3.18 M/uL (4.70-6.10); White Blood Count 8.07 K/ul (4.8-10.8)
[2025-11-18 07:29] LABS: Anion Gap 5.0 (3-11); Blood Urea Nitrogen 30.0 mg/dl (6-23); Calcium 7.9 mg/dl (8.6-10.3); Carbon Dioxide 26.0 mmol/L (21-32); Chloride 113.0 mmol/L (98-107); Creatinine Clr Calc Pharmacy 37.4 ml/min; Glucose 110.0 mg/dl (70-99(Fasting)); Potassium 3.6 mmol/L (3.5-5.1); Sodium 144.0 mmol/L (136-145)
[2025-11-18 09:38] LABS: Appearance Urine Cloudy (Clear); Cast Urine Automated 0-2 /lpf (0-2); Epithelial Cell Urine Auto 0-2 /hpf (0-2); Glucose Urine UA Negative (Negative); RBC Urine Automated >20 /hpf (0-2); WBC Urine Automated >50 /hpf (0-5)
[2025-11-18 10:27] LABS: Bacteria Urine Automated 1+ (None Seen)
--- NOTE | 2025-11-18 14:23 | Hospitalist Progress Note ---
Date of Service November 18, 2025 Assessment & Plan (1) Closed right femoral fracture: Plan: 85-year-old male with past medical history significant for dementia, depression, BPH, hypertension, GERD as per records, do not have complete records was transferred from [facility] for right hip fracture. Patient presented to [facility] from memory care unit from [facility] with fall. As per records from [facility] patient supposed to walk with a walker but he was ambulating without walker outside the room and had a witnessed fall to the ground presumably onto his right hip. And he was having pain in the right hip region and imaging studies done showed right hip fracture. Fall Right femoral fracture Patient presented after mechanical fall. History of severe dementia and memory care unit Found to have right femoral neck fracture s/p Right Hip Cemented Hemiarthroplasty(Right) 11/13 Pain control with Tylenol, Dilaudid PT/OT, will need rehab. Delirium precaution. Patient high risk for delirium. prn im zyprexa Acute kidney injury: Cr up to 1.6, s/p ivf, BRISEIDA resolved. Retained Moore catheter/possible UTI: Overnight 11/16 - 11/17, patient pulled out his Moore catheter, tip of the Moore catheter remained inside the bladder. Patient later on peed in the urinal and the remaining part of the catheter fell out 11/17. Patient developing low-grade fever 11/17, c/w Rocephin 11/17, await U Cx. Abn CXR: CXR shows 55 x 40 mm soft tissue density in the right axilla, the left axilla is not included in the examination. US ordered-can be obtained in non-emergent basis. Ultrasound right axilla: Normal sonographic examination of right axilla. CT chest: No abnormality detected in right axilla. Hypertension Continue losartan and metoprolol IV hydralazine as needed Dementia On rivastigmine Olanzapine nightly Monitor for delirium Depression On Lexapro-continue BPH On Proscar-continue GERD On omeprazole-continue DVT prophylaxis SCDs on left leg only, Aspirin twice daily per Ortho. Disposition: Medical floor. stable for rehab dc. code status full Please note the above document was generated using voice recognition software. It may contain grammatical, syntax or spelling errors. Any formal questions or concerns about the content, text or information contained within the body of this dictation should be directly addressed to the provider for clarification Admission and Anticipated Discharge Date Admission Date: November 12, 2025 Subjective Patient seen and examined at bedside. Per RN, more alert and some cooperative today, still trying to remove med equip. Pt is a feed, eating ok per rn ros not able in detail d/t cognition status. Physical Exam Physical Exam: General- NAD, on 2L NC O2. Head- atraumatic Neck- supple, no JVD Lungs- clear to auscultation no wheezing or crackles Heart- regular rhythm; no murmur, no gallop. Abdomen- normal bowel sounds, soft, nontender, no distension Extremities- no pretibial edema, right hip w/ clean dressing wo soakage. Neuro- alert, oriented x 1; not answering questions Results & Data Results & Data Vital Signs (Past 12 Hours) Vital Signs Temp Pulse Resp BP Pulse Ox O2 Del Method O2 Flow Rate 11/18/25 08:55 36.1 C L 74 15 195/88 H 95 Nasal Cannula 2
[2025-11-19] MEDS: HYDROmorphone INJ 0.5 MG/0.5 ML SYR IV STA (01:57)
[2025-11-19] MEDS: diphenhydrAMINE Capsule 25 MG CAP PO ONE (01:58)
[2025-11-19] MEDS: ACETAMINOPHEN 1,000 MG/100 ML VIAL IV STA (05:21)
--- NOTE | 2025-11-19 11:30 | Hospitalist Progress Note ---
Date of Service November 19, 2025 Assessment & Plan (1) Closed right femoral fracture: Plan: 85-year-old male with past medical history significant for dementia, depression, BPH, hypertension, GERD as per records, do not have complete records was transferred from [facility] for right hip fracture. Patient presented to [facility] from memory care unit from [facility] with fall. As per records from [facility] patient supposed to walk with a walker but he was ambulating without walker outside the room and had a witnessed fall to the ground presumably onto his right hip. And he was having pain in the right hip region and imaging studies done showed right hip fracture. Fall Right femoral fracture Patient presented after mechanical fall. History of severe dementia and memory care unit Found to have right femoral neck fracture s/p Right Hip Cemented Hemiarthroplasty(Right) 11/13 Pain control with Tylenol, Dilaudid PT/OT, will need rehab. Delirium precaution. Patient high risk for delirium. prn im zyprexa Acute kidney injury: Cr up to 1.6, s/p ivf, BRISEIDA resolved. Retained Moore catheter/possible UTI: Overnight 11/16 - 11/17, patient pulled out his Moore catheter, tip of the Moore catheter remained inside the bladder. Patient later on peed in the urinal and the remaining part of the catheter fell out 11/17. Patient developing low-grade fever 11/17, c/w Rocephin 11/17, await U Cx. Abn CXR: CXR shows 55 x 40 mm soft tissue density in the right axilla, the left axilla is not included in the examination. US ordered-can be obtained in non-emergent basis. Ultrasound right axilla: Normal sonographic examination of right axilla. CT chest: No abnormality detected in right axilla. Hypertension Continue losartan and metoprolol IV hydralazine as needed Dementia On rivastigmine Olanzapine nightly Monitor for delirium Depression On Lexapro-continue BPH On Proscar-continue GERD On omeprazole-continue DVT prophylaxis SCDs on left leg only, Aspirin twice daily per Ortho. Disposition: Medical floor. stable for rehab dc. code status full Please note the above document was generated using voice recognition software. It may contain grammatical, syntax or spelling errors. Any formal questions or concerns about the content, text or information contained within the body of this dictation should be directly addressed to the provider for clarification Admission and Anticipated Discharge Date Admission Date: November 12, 2025 Subjective Patient seen and examined at bedside. Per RN, more alert and some cooperative today, was able to feed himself per RN. Pt is generally a feed, eating ok per rn ros not able in detail d/t cognition status. Physical Exam Physical Exam: General- NAD, on RA Head- atraumatic Neck- supple, no JVD Lungs- clear to auscultation no wheezing or crackles Heart- regular rhythm; no murmur, no gallop. Abdomen- normal bowel sounds, soft, nontender, no distension Extremities- no pretibial edema, right hip w/ clean dressing wo soakage. Neuro- alert, oriented x 1; not answering questions Results & Data Results & Data Vital Signs (Past 12 Hours) Vital Signs Temp Pulse Resp BP BP Pulse Ox O2 Del Method 11/19/25 10:39 37.1 C 64 15 159/71 H 93 Room Air 11/19/25 07:24 36.6 C 70 16 170/72 H 96 Room Air 11/19/25 07:13 Room Air 11/19/25 01:02 172/78 H 11/18/25 23:43 180/82 H
[2025-11-19] MEDS: ACETAMINOPHEN 325 MG TAB PO PRN (20:43)
[2025-11-20] MEDS: ONDANSETRON 4 MG OD TAB PO STA (04:17)
[2025-11-20] MEDS: ALUMINUM/MAGNESIUM/SIMETH (MAALOX MAX) 30 ML UDC PO STA (04:17)
[2025-11-20 06:53] VITALS: BP 122/67; PULSE 69; RESP 18; TEMP 97.9; O2SAT 90
--- NOTE | 2025-11-20 10:32 | Discharge Summary ---
Date of Service November 20, 2025 Admission HPI Per Admitting Provider 85-year-old male with past medical history significant for dementia, depression, BPH, hypertension, GERD as per records, do not have complete records was transferred from [facility] for right hip fracture. Patient presented to [facility] from memory care unit from [facility] with fall. As per records from [facility] patient supposed to walk with a walker but he was ambulating without walker outside the room and had a witnessed fall to the ground presumably onto his right hip. And he was having pain in the right hip region and imaging studies done showed right hip fracture. Patient currently resting comfortably. Seems somewhat restless. Knows his name. Denies any pain. Could not get any history from the patient currently. Could not reach [facility] [place]. Could not reach his sister. Past medical history. As mentioned above Past surgical history. Unknown at this time Family history and social history unknown at this time Admission Exam Per Admitting Provider General- Somewhat restless Head- atraumatic Neck- supple, no JVD Lungs- clear to auscultation no wheezing or crackles Heart- regular rhythm; no murmur, no gallop. Abdomen- normal bowel sounds, soft, nontender, no distension Extremities- no pretibial edema, right leg slightly shortened Neuro- alert, oriented x 1; not answering questions Principal Diagnosis Fall Right femoral fracture Acute kidney injury, resolved Retained Moore catheter/possible UTI Abn CXR: Dementia Discharge Exam General- NAD, on RA Head- atraumatic Neck- supple, no JVD Lungs- clear to auscultation no wheezing or crackles Heart- regular rhythm; no murmur, no gallop. Abdomen- normal bowel sounds, soft, nontender, no distension Extremities- no pretibial edema, right hip w/ clean dressing wo soakage. Neuro- alert, oriented x 1; not answering questions Discharge Data Allergies Allergy/AdvReac Type Severity Reaction Status Date / Time duloxetine [From Cymbalta] Allergy Unknown Verified 11/13/25 00:02 oxycodone Allergy Unknown Unverified 11/13/25 00:02 tramadol Allergy Unknown Verified 11/13/25 00:02 Consultations 11/13/25 08:00 Consult Orthopedic Surgery Routine 11/17/25 10:06 Consult Urology Routine Procedures Performed Operation Date: 11/13/25 11:35 Actual Procedures p Right Hip Cemented Hemiarthroplasty(Right) - Joseph Calderon, DO Ordered Studies 11/13/25 FL hip RT 1V Routine 11/13/25 09:21 US axilla RT Routine 11/14/25 09:00 CT chest diagnostic wo con Urgent Hospital Course (1) Closed right femoral fracture: 85-year-old male with past medical history significant for dementia, depression, BPH, hypertension, GERD as per records, do not have complete records was transferred from [facility] for right hip fracture. Patient presented to [facility] from memory care unit from [facility] with fall. As per records from [facility] patient supposed to walk with a walker but he was ambulating without walker outside the room and had a witnessed fall to the ground presumably onto his right hip. And he was having pain in the right hip region and imaging studies done showed right hip fracture. Fall Right femoral fracture Patient presented after mechanical fall. History of severe dementia and memory care unit Found to have right femoral neck fracture s/p Right Hip Cemented Hemiarthroplasty(Right) 11/13 Pain control with Tylenol, morphine on dc PT/OT, will need rehab. Delirium precaution. Patient high risk for delirium. prn im zyprexa, has not used in more than 24 hours as of now. Acute kidney injury: Cr up to 1.6, s/p ivf, BRISEIDA resolved. Retained Moore catheter/possible UTI: Overnight 11/16 - 11/17, patient pulled out his Moore catheter, tip of the Moore catheter remained inside the bladder. Patient later on peed in the urinal and the remaining part of the catheter fell out 11/17. Patient developing low-grade fever 11/17, c/w Rocephin 11/17, UCx w /no grwoth. plan for total 5 d Rx. Abn CXR: CXR shows 55 x 40 mm soft tissue density in the right axilla, the left axilla is not included in the examination. US ordered-can be obtained in non-emergent basis. Ultrasound right axilla: Normal sonographic examination of right axilla. CT chest: No abnormality detected in right axilla. Hypertension Continue losartan and metoprolol IV hydralazine as needed Dementia On rivastigmine Olanzapine nightly Monitor for delirium Depression On Lexapro-continue BPH On Proscar-continue GERD On omeprazole-continue DVT prophylaxis SCDs on left leg only, Aspirin twice daily per Ortho. Disposition: Medical floor. stable for rehab dc. code status full Patient is being discharged to SNF with following instructions at the point of discharge: Follow-up with your primary care physician within a week time and likely you will need labs CBC/CMP/magnesium/phosphorus. Follow-up with orthopedics in about 2 weeks time upon discharge. He will be discharged on antibiotic to complete course for UTI. You can utilize OTC Tylenol for mild to moderate pain and morphine for moderate to severe pain. Taking medications as prescribed. Please make sure that you are able to get your medications today by calling your pharmacy before you leave the hospital so that your treatment continuity is not broken. Please note the above document was generated using voice recognition software. It may contain grammatical, syntax or spelling errors. Any formal questions or concerns about the content, text or information contained within the body of this dictation should be directly addressed to the provider for clarification Home Health Attestation I certify that this patient is under my care and that I, or a physicians certified ophthalmic assistant working with me, had a face to-face encounter that meets the home health [id number] encounter requirements with this patient. The encounter with the patient was in whole, or in part, for the following medical condition, which is the primary reason for home health care (list medical condition): I certify that, based on my findings, the following services are medically necessary home health services: My clinical findings support the need for the above services because: Further, I certify that my clinical findings support that this patient is homebound (i.e. absences from home require considerable and taxing effort and are for medical reasons or mormonism services or infrequently or of short duration when for other reasons) because: Certification for Home Health Services: Based on the above findings, I certify that this patient is confined to the home and needs intermittent [facility] care, physical therapy and/or speech therapy or continues to need occupational therapy. The patient is under my care, and I have initiated the establishment of the plan of care. This patient will be followed by a physician who will periodically review the plan of care. Total Time Total Time Spent Total Time Spent (In Minutes): 35 Discharge Plan Discharge Items Patient Disposition: Transfer Residential Fac Reason For Visit: FEMORAL NECK FRACTURE Discharge Diagnosis: Fall Right femoral fracture Acute kidney injury, resolved Retained Moore catheter/possible UTI Abn CXR: Dementia Activity: Resume your previous activity Non-emergency contact: Primary Care Provider Call non-emergency contact if: you have any medication questions and your symptoms worsen Follow-up/Referrals: Joseph Calderon DO [Physician] - Aliyah Pierre DO [Primary Care Provider] - Diet: Regular Addtl Attending Provider Instructions: Follow-up with your primary care physician within a week time and likely you will need labs CBC/CMP/magnesium/phosphorus. Follow-up with orthopedics in about 2 weeks time upon discharge. He will be discharged on antibiotic to complete course for UTI. You can utilize OTC Tylenol for mild to moderate pain and morphine for moderate to severe pain. Taking medications as prescribed. Please make sure that you are able to get your medications today by calling your pharmacy before you leave the hospital so that your treatment continuity is not broken. Addtl Laserist Provider Instructions: General Orthopedic Discharge Instructions Activity: WBAT Diet: You may resume previous diet. Medications: 1. Narcotic You will likely be sent home from the hospital with a prescription for the narcotic pain medication. Take it as needed. Side effects most commonly include nausea and constipation 2. Resume previous home medications unless otherwise instructed Dressing Care: If there is a soft dressing in place then leave the dressing intact for 5 days. On the 5th you may remove the dressing and leave the stitches open to air or cover them with band-aids. Keep the incision clean and dry If there is a hard splint then leave it in place until your follow-up visit in 2 weeks Showering: If you have a soft dressing you may shower right after the surgery but do not get the dressing wet. After the dressing is removed on the 5th day then you can get the stitches wet in the shower, but do not soak or scrub them. Let the soapy shower water run over the stitches and pat them dry. If you have a hard splint, cover it in a plastic bag and keep it dry. Do not remove it until the follow up appointment. Things To Watch For: 1. Drainage from the incision site that occurs more than one week after your surgery. 2. Increased redness at the incision site. 3. Fever above 102 degrees Fahrenheit. 4. Unusual chest pain or shortness of breath. 5. Call [facility] at with any of the above problems. Follow-Up Visit: Please make arrangements to follow-up with Dr. Calderon team approximately 2 weeks after your day of surgery for progress check and staple/suture removal. If you have any questions call Pending Studies at Discharge: No Stand-Alone Forms: My [facility] Skilled Items Patient informed of condition?: Yes DNR: No Discharge Level of Care: Skilled Communicable Disease: No Discharge Prognosis: Stable Lines: None Urinary Catheter: No Medications and DC Order Prescriptions: New cholecalciferol (vitamin D3) 25 mcg (1,000 unit) Capsule 25 mcg PO QAM Qty: 30 0RF morphine 15 mg tablet extended release 15 mg PO TID PRN (Reason: pain) Qty: 15 0RF cefdinir 300 mg capsule 300 mg PO BID 2 Days Qty: 4 0RF Continued metoprolol succinate 100 mg Tablet Extended Release 24 Hr 100 mg PO DAILY olanzapine 2.5 mg Tablet 2.5 mg PO HS omeprazole 20 mg Capsule,Delayed Release(Dr/Ec) 20 mg PO DAILY losartan 100 mg Tablet 100 mg PO DAILY finasteride 5 mg tablet 5 mg PO DAILY escitalopram oxalate 10 mg tablet 10 mg PO DAILY alfuzosin 10 mg tablet extended release 24 hr 10 mg PO DAILY rivastigmine 13.3 mg/24 hour patch 24 hour 13.3 mg topical DAILY Changed aspirin 81 mg Tablet,Delayed Release (Dr/Ec) 81 mg PO UD Qty: 60 0RF Rx Instructions: 1 tab twice a day for 40 days, then 1 tab daily. Discharge Orders: Discharge Order (Routine); Ordered 11/20/25 Ordered By: Santo West Admission Data Admit Date/Time: 11/12/25 22:09 Attending Provider: Santo West Admit Provider: Hilton El Primary Care Provider: Aliyah Pierre Other Providers: Joseph Calderon; Quoc Whitfield
== END 2025-11-20 14:10 | DRG 522 ==
LOC: SUATTDRO 22:09 → 3W 22:09